=== PATIENT | male | born 1995 | race Caucasian/White ===

== ENCOUNTER 2018-04-23 21:45 | Emergency (ER) | payer BC ==
--- NOTE | 2018-04-23 22:03 | ER Report ---
History and Physical Time Seen By MD: 22:03 Hx. of Stated Complaint: COUGHING AND WHEEZING STARTED LAST NIGHT AND GETTING WORSE. USED HIS INHALER, SHORT OF BREATH HPI/ROS CHIEF COMPLAINT: cough, wheezing HISTORY OF PRESENT ILLNESS: This is a 22 year old male. Had start of coughing and some wheezing last night. Getting worse today. Used an inhaler, without much relief. No history of lung diseases. Feels short of breath. Subjective fevers/hot flushed. No nausea. Normal bowel and bladder function. No rashes. No unusual exposures at work or otherwise. Allergies: Coded Allergies: No Known Allergies (Verified Allergy, Unknown, 04/23/18) Home Meds Active Scripts Prednisone (PREDNISONE) 20 Mg Tablet, 40 MG PO QDAY, #8 TAB 0 Refills Prov:BARNEY SILVA MD 04/24/18 Levofloxacin 500 Mg Tab (LEVAQUIN 500 MG TAB) 500 Mg Tablet, 500 MG PO QDAY, #10 TAB 0 Refills Prov:BARNEY SILVA MD 04/24/18 Past Medical/Surgical History Negative Reviewed Nurses Notes: Yes Hx Substance Use Disorder: No Hx Alcohol Use: No Constitutional Vital Sign - Last 24 Hours 04/23/18 04/23/18 04/23/18 04/23/18 21:52 21:52 21:57 22:00 Temp 99.5 Pulse 97 93 Resp 18 B/P (MAP) 167/123 (138) 167/123 149/101 (117) Pulse Ox 84 92 O2 Delivery Room Air O2 Flow Rate 4.0 04/23/18 04/23/18 04/23/18 04/23/18 22:15 22:15 22:15 22:30 Pulse 89 99 97 Resp 18 B/P (MAP) 153/96 (115) Pulse Ox 93 94 88 O2 Delivery Nasal Cannula O2 Flow Rate 4.0 04/23/18 22:47 B/P (MAP) 151/95 (113) Physical Exam General Appearance: The patient is alert. No acute distress. Eyes: Pupils are equal, round. No pallor, injection or icterus. ENT: Mucous membranes are moist. Normal oral mucosa. Posterior oropharynx is normal. Neck: Supple and non tender. No lymphadenopathy. Respiratory: Lungs with wheezing on expiration and with some rhonchi, but no rales noted. Short of breath, but there are no retractions or accessory muscle use. Cardiovascular: Regular rate and rhythm. No murmurs, gallops or rubs. Normal capillary refill. No edema. Gastrointestinal: Abdomen is soft and non tender. Nondistended. Normal active bowel sounds. Neurological: Alert and oriented x3. Skin: Warm and diaphoretic. No rashes. Musculoskeletal: Extremities are nontender. No chest wall pain. No tenderness in palpation of the cervical, thoracic and lumbar spine. DIFFERENTIAL DIAGNOSIS: After history and physical exam, differential diagnosis was considered for shortness of breath including but not limited to pulmonary infectious process, COPD, asthma, pulmonary embolus and congestive heart failure. Medical Decision Making Data Points Result Diagram: 04/23/18215704/23/182157 Laboratory Hematology Test 04/23/18 21:58 Red Blood Count 6.31 M/uL (4.00-5.60) Mean Corpuscular Volume 82.3 fL (80.0-96.0) Mean Corpuscular Hemoglobin 28.8 pg (26.0-33.0) Mean Corpuscular Hemoglobin Concent 35.1 g/dL (32.0-36.0) Red Cell Distribution Width 13.1 % (11.5-14.5) Mean Platelet Volume 8.2 fL (7.2-11.1) Neutrophils (%) (Auto) 73.4 % (39.4-72.5) Lymphocytes (%) (Auto) 15.2 % (17.6-49.6) Monocytes (%) (Auto) 3.3 % (4.1-12.4) Eosinophils (%) (Auto) 7.5 % (0.4-6.7) Basophils (%) (Auto) 0.6 % (0.3-1.4) Nucleated RBC Relative Count (auto) 0.1 /100WBC Neutrophils # (Auto) 9.7 K/uL (2.0-7.4) Lymphocytes # (Auto) 2.0 K/uL (1.3-3.6) Monocytes # (Auto) 0.4 K/uL (0.3-1.0) Eosinophils # (Auto) 1.0 K/uL (0.0-0.5) Basophils # (Auto) 0.1 K/uL (0.0-0.1) Nucleated RBC Absolute Count (auto) 0.01 K/uL Erythrocyte Sedimentation Rate 6 mm/HOUR (0-15) Sodium Level 139 mmol/L (137-145) Potassium Level 3.2 mmol/L (3.5-5.0) Chloride Level 98 mmol/L (98-107) Carbon Dioxide Level 26 mmol/L (22-30) Blood Urea Nitrogen 7 mg/dl (9-21) Creatinine 0.90 mg/dl (0.66-1.25) Glomerular Filtration Rate Calc > 60.0 Random Glucose 98 mg/dl (75-110) Calcium Level 9.1 mg/dl (8.4-10.2) Total Bilirubin 1.0 mg/dl (0.2-1.3) Aspartate Amino Transf (AST/SGOT) 28 U/L (0-35) Alanine Aminotransferase (ALT/SGPT) 47 U/L (0-56) Alkaline Phosphatase 83 U/L (0-126) C-Reactive Protein 2.5 mg/dl (<1.0) Total Protein 8.6 g/dl (6.3-8.2) Albumin 4.9 g/dl (3.5-5.0) Chemistry Test 04/23/18 21:58 White Blood Count 13.2 k/uL (4.5-11.0) Red Blood Count 6.31 M/uL (4.00-5.60) Hemoglobin 18.2 g/dL (14.0-18.0) Hematocrit 51.9 % (42.0-52.0) Mean Corpuscular Volume 82.3 fL (80.0-96.0) Mean Corpuscular Hemoglobin 28.8 pg (26.0-33.0) Mean Corpuscular Hemoglobin Concent 35.1 g/dL (32.0-36.0) Red Cell Distribution Width 13.1 % (11.5-14.5) Platelet Count 292 K/uL (150-450) Mean Platelet Volume 8.2 fL (7.2-11.1) Neutrophils (%) (Auto) 73.4 % (39.4-72.5) Lymphocytes (%) (Auto) 15.2 % (17.6-49.6) Monocytes (%) (Auto) 3.3 % (4.1-12.4) Eosinophils (%) (Auto) 7.5 % (0.4-6.7) Basophils (%) (Auto) 0.6 % (0.3-1.4) Nucleated RBC Relative Count (auto) 0.1 /100WBC Neutrophils # (Auto) 9.7 K/uL (2.0-7.4) Lymphocytes # (Auto) 2.0 K/uL (1.3-3.6) Monocytes # (Auto) 0.4 K/uL (0.3-1.0) Eosinophils # (Auto) 1.0 K/uL (0.0-0.5) Basophils # (Auto) 0.1 K/uL (0.0-0.1) Nucleated RBC Absolute Count (auto) 0.01 K/uL Erythrocyte Sedimentation Rate 6 mm/HOUR (0-15) Glomerular Filtration Rate Calc > 60.0 Calcium Level 9.1 mg/dl (8.4-10.2) Total Bilirubin 1.0 mg/dl (0.2-1.3) Aspartate Amino Transf (AST/SGOT) 28 U/L (0-35) Alanine Aminotransferase (ALT/SGPT) 47 U/L (0-56) Alkaline Phosphatase 83 U/L (0-126) C-Reactive Protein 2.5 mg/dl (<1.0) Total Protein 8.6 g/dl (6.3-8.2) Albumin 4.9 g/dl (3.5-5.0) EKG/Imaging Imaging TWO VIEW CHEST 04/23/2018 10:08 PM. INDICATION: short of breath, wheezing COMPARISON: None. FINDINGS: Lungs are well-expanded. The lungs are clear. No pneumothorax or pleural effusion. Pulmonary vasculature is unremarkable. Heart size is normal. IMPRESSION: Normal. Report Dictated By: Rafa Quispe MD at 04/23/2018 11:[address] angiogram chest with contrast Indication: Hypoxia. Wheeze. Comparison: None available. Technique: Axial CT images are obtained through the chest after administration of 75 mL Isovue 370 IV contrast. Reformatted coronal and sagittal images were reviewed as well as coronal MIP images. One of the following dose optimization techniques was utilized in the performance of this exam: Automated exposure control; adjustment of the mA and/or kV according to the patient's size; or use of an iterative reconstruction technique. Specific details can be referenced in the facility's radiology CT exam operational policy. FINDINGS: No evidence of filling defect within the pulmonary vasculature to suggest pulmonary embolus. There is no axillary adenopathy. Residual thymic tissue is seen within the anterior superior mediastinum which is expected for age. There are enlarged hilar lymph nodes identified. These are most pronounced on the right with a central node in the right hilum measuring 1.6 x 2.2 cm. A suprahilar node on image 153 measures 1.4 x 0.9 cm. On the left side a lymph node on image 149 measures 1.2 x 1.5 cm. No enlarged mediastinal nodes. No pericardial effusion or pleural effusion is seen. There are patchy groundglass infiltrates present involving both lungs. These are most dense and consolidated centrally within the right upper lobe as well as the lateral segment of the right middle lobe. Patchy groundglass is seen centrally a nd peripherally within the right lower lobe. On the left patchy opacities seen anteriorly within the upper lobe and centrally within the lower lobe. In the acute setting, consideration must be given to multifocal pneumonia. Evolving inflammatory/hypersensitivity pneumonitis would also be in the differential. Clinical correlation is necessary. This will require follow-up. Limited images of the upper abdomen are unremarkable. No osseous abnormality of the thoracic spine. IMPRESSION: 1. No evidence of pulmonary embolus. 2. Multifocal groundglass infiltrates with a charlton lobar distribution most pronounced in the right upper lobe and right lower lobe. In the acute setting, differential would favor multifocal pneumonia versus an evolving inflammatory/hypersensitivity pneumonitis. Other etiologies such as sarcoidosis would be in the differential. Clinical correlation necessary. Follow-up imaging recommended to ensure resolution. 3. Mildly enlarged hilar lymph nodes. Attention should be paid to these on follow-up imaging to ensure resolution. These are almost certainly reactive. Results were discussed with BARNEY SILVA at 04/24/2018 12:36 AM. Report Dictated By: Trung Weiner at 04/24/2018 12:20 AM ED Course/Re-evaluation Clinical Indication for ER IV: Hydration, IV Access ED Course Patient had a little improvement from a breathing treatment and IV Solu-Medrol. Chest x-ray negative. Trial without oxygen showed immediate desaturation again into mid 80s pulse-ox. CT scan obtained. Shows diffuse ground glass patchy opacities, mainly right upper and right middle. Could be bacterial, viral or a hypersensitivity reaction; discussed with the radiologist. Discussed these findings with the patient. He is feeling better, but no completely and still requires oxygen. Discussed treatment options. He would prefer to go home on oxygen with oral antibiotics. We did discuss admission as a possibility as well. We started Levaquin and Prednisone with home oxygen. Instructions to return for re-evaluation and likely need for admission if worsening. Decision to Disposition Date: Apr 24, 2018 Decision to Disposition Time: 01:18 Depart Departure Latest Vital Signs Vital Signs Date Time Temp Pulse Resp B/P (MAP) Pulse Ox O2 Delivery O2 Flow Rate FiO2 04/23/18 22:47 151/95 (113) 04/23/18 22:30 97 88 04/23/18 22:15 18 04/23/18 22:15 Nasal Cannula 4.0 04/23/18 21:52 99.5 Impression: Primary Impression: Pneumonia Condition: Improved Disposition: HOME OR SELF-CARE New Scripts Prednisone (PREDNISONE) 20 Mg Tablet 40 MG PO QDAY, #8 TAB 0 Refills Prov: BARNEY SILVA MD 04/24/18 Levofloxacin 500 Mg Tab (LEVAQUIN 500 MG TAB) 500 Mg Tablet 500 MG PO QDAY, #10 TAB 0 Refills Prov: BARNEY SILVA MD 04/24/18 Departure Forms: Home Oxygen, Nebulizer RX Reason for Use/Diagnosis: pneumonia, hypoxia Start Date of the Order: Apr 24, 2018 Dosage or Concentration (if applicable) - LPM: 2 Route of Administration (if applicable): Nasal Cannula Frequency of Use: Continuous Duration Home O2 Required: 4 Duration Units: Weeks Room Air Oxygen Saturation: 84 ER Prescribing Physician's Name: Barney Silva NPI Numbers for Local ER MDs: Ricardo [id number] Patient Instructions: Community Acquired Pneumonia (ED) Additional Instructions: Rest for the next few days. Take the antibiotic Levaquin 500mg once a day for 10 days. Take Prednisone 20mg tablets, take 2 tablets once a day for 4 more days. Albuterol inhaler, 2 inhalations every 4hours as needed for shortness of breath. Home oxygen at 2 liters by nasal canula. Please follow-up with your primary care provider in the next 7-10 days. Return to the ER if worsening. Consider further evaluation with a finish sander. Problem Qualifiers Primary Impression: Pneumonia Pneumonia type: due to unspecified organism Laterality: bilateral Lung location: unspecified part of lung Qualified Codes: J18.9 - Pneumonia, unspecified organism BARNEY SILVA MD Apr 23, 2018 22:03
[2018-04-23] MEDS ORDERED: ALBUTEROL/IPRATROPIUM 3 ML NEB NEB ONE (22:10)
[2018-04-23] MEDS ORDERED: methylPREDNIS SUCC 125 MG/2ML IVP ONE (22:10)
[2018-04-23 22:22] LABS: PLATELET COUNT, AUTOMATED 292 K/uL (150-450)
[2018-04-23 22:47] VITALS: BP 151/95
--- NOTE | 2018-04-23 23:33 | RADIOLOGY IMAGING REPORT ---
FACILITY: [facility] PATIENT NAME: Ricardo Wan : 1995 MR: [id number] V: [id number] EXAM DATE: ORDERING PHYSICIAN: NELDA ÁLVAREZ [place]CHNOLOG[place] [facility] [place] : 1995 Visit/Account:[id number] Date of Sevice: 04/23/2018 TWO VIEW CHEST 04/23/2018 10:08 PM. INDICATION: short of breath, wheezing COMPARISON: None. FINDINGS: Lungs are well-expanded. The lungs are clear. No pneumothorax or pleural effusion. Pulmo nary vasculature is unremarkable. Heart size is normal. IMPRESSION: Normal. Report Dictated By: Rafa Quispe MD at 04/23/2018 11:28 PM Report E-Signed By: Rafa Quispe MD at 04/23/2018 11:29 PM WSN:[id number]
[2018-04-23] MEDS ORDERED: NS(*) 0.9% 50 ML BAG 50 ML ONE (23:53)
[2018-04-23] MEDS ORDERED: IOPAMIDOL 76% 75 ML INFUS BTL 75 ML ONE (23:53)
--- NOTE | 2018-04-24 00:41 | RADIOLOGY IMAGING REPORT ---
FACILITY: [facility] PATIENT NAME: Ricardo Wan : 1995 MR: [id number] V: [id number] EXAM DATE: ORDERING PHYSICIAN: NELDA ÁLVAREZ TECHNOLOGIST: Location: [facility] [place] Patient: Ricardo Wan : 1995 Visit/Account:[id number] Date of Sevice: 04/23/2018 CT angiogram chest with contrast Indication: Hypoxia. Wheeze. Comparison: None available. Technique: Axial CT images are obtained through the chest after administration of 75 mL Isovue 370 IV contrast. Reformatted coronal and sagittal images were reviewed as well as coronal MIP images. One o f the following dose optimization techniques was utilized in the performance of this exam: Automated exposure control; adjustment of the mA and/or kV according to the patient's size; or use of an iterat gini reconstruction technique. Specific details can be referenced in the facility's radiology CT exa m operational policy. FINDINGS: No evidence of filling defect within the pulmonary vasculature to suggest pulmonary embolus. There is no axillary adenopathy. Residual thymic tissue is seen within the anterior superior mediasti num which is expected for age. There are enlarged hilar lymph nodes identified. These are most pronou nced on the right with a central node in the right hilum measuring 1.6 x 2.2 cm. A suprahilar node on image 153 measures 1.4 x 0.9 cm. On the left side a lymph node on image 149 measures 1.2 x 1.5 cm. N o enlarged mediastinal nodes. No pericardial effusion or pleural effusion is seen. There are patchy groundglass infiltrates present involving both lungs. These are most dense and conso lidated centrally within the right upper lobe as well as the lateral segment of the right middle lobe . Patchy groundglass is seen centrally and peripherally within the right lower lobe. On the left patc hy opacities seen anteriorly within the upper lobe and centrally within the lower lobe. In the acute setting, consideration must be given to multifocal pneumonia. Evolving inflammatory/hypersensitivity pneumonitis would also be in the differential. Clinical correlation is necessary. This will require f ollow-up. Limited images of the upper abdomen are unremarkable. No osseous abnormality of the thoracic spine. IMPRESSION: 1. No evidence of pulmonary embolus. 2. Multifocal groundglass infiltrates with a charlton lobar distribution most pronounced in the right uppe r lobe and right lower lobe. In the acute setting, differential would favor multifocal pneumonia vers us an evolving inflammatory/hypersensitivity pneumonitis. Other etiologies such as sarcoidosis would be in the differential. Clinical correlation necessary. Follow-up imaging recommended to ensure resol ution. 3. Mildly enlarged hilar lymph nodes. Attention should be paid to these on follow-up imaging to ensur e resolution. These are almost certainly reactive. Results were discussed with NELDA ÁLVAREZ at 04/24/2018 12:36 AM. Report Dictated By: Trung Weiner at 04/24/2018 12:20 AM Report E-Signed By: Trung Weiner at 04/24/2018 12:37 AM WSN:[id number]
[2018-04-24] MEDS ORDERED: LEVOFLOXACIN 500 MG TAB PO ONE (01:10)
[2018-04-24] MEDS ORDERED: predniSONE 20 MG TAB PO ONE (01:10)
[2018-04-24] MEDS ORDERED: PRED20TA6 PO (01:20)
[2018-04-24] MEDS ORDERED: LEVO-85 PO (01:20)
== END 2018-04-24 01:41 | disposition home or self-care (01) ==
LOC: ER 22:00
DX: J18.9 Pneumonia, unspecified organism (principal)
CPT/HCPCS: 71046; 71275; 85025; 85651; 86140; 87040; 94640; 96374; 99284; J2930; J7050; J7512; J7620; Q9967; 82040; 82247; 82310; 82374; 82435; 82565; 82947; 84075; 84132; 84155; 84295; 84450; 84460; 84520